=== PATIENT | female | born 1980 | race Caucasian/White ===

== ENCOUNTER 2019-12-11 22:00 | Emergency (ER) | payer BC ==
[~2019-12-11] VITALS: Ht 170.2 cm; Wt 70.3 kg
--- OUTSIDE RECORDS SUMMARY | 2019-12-11 22:03 | XMS REPORT ---
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 Allergies, Adverse Reactions, Alerts This patient has no known allergies or adverse reactions. Medications This patient has no known medications. Results Test Description Test Time Test Comments Text Results Atomic Results Result Comments Stress Test - Treadmill ONLY 2019-03-07 12:42:00 [place] [id number] Patient Name : LISA ROBIN MR #: [id number] : 1980 Age/Sex: 38/F Adm Physician : RACHAEL MORRISON MD Admit Date : 02/01/19 Location : [facility] Room/Bed : [place] [address] REPORT: Myoview Stress Test DATE OF STUDY: 02/02/2019 14:53:00 Stress Test - Treadmill ONLY PROCEDURE: Nuclear gated myocardial perfusion scan report. Nuclear gated myocardial perfusion scan is performed on 02/03/2019, and is performed as per protocol at [facility] and Lexiscan injected 0.4 mg intravenously stress agent and the patient received Myoview 11 mCi and 33 mCi for resting and stress protocol respectively. I supervised the stress test and interpreted the stress test. IMPRESSION: Normal gated myocardial perfusion scan. Ejection fraction of 60%. No evidence of any ischemia or scar noted. MD LEON Mckenna/AUGUSTO /[id number] Signature Date Dictated By: JC JOSHI MD Transcribed By: MODL on 03/07/19 <Electronically signed by JC JOSHI MD><<Signature on File>>03/12/19 1800 COPY TO: MRI BRAIN WO 2019-02-02 11:47:00 [place] [address] Patient Name: LISA ROBIN MR #: [id number] : 1980 Age/Sex: 38/F Req #: [id number] Adm Physician: RACHAEL MORRISON MD Ordered by: JANINA FLORES MD Report #: [id number] Location: [facility] Room/Bed: [place] [address] Procedure: [id number] MRI/MRI BRAIN WO Exam Date: Exam Time: REPORT STATUS: Signed Exam: Brain MRI without IV contrast History: Left-sided facial droop Com parison studies: Head CT 02/01/2019. Technique: Sagittal and axial T2 FS, axial DWI, axial T2*GRE, axial T1 FLAIR and axial coronal T2 FLAIR. Intravenous contrast: None Findings: Several pulse sequences are limited by artifacts related to patient motion. In spite of this limitation: Scalp: Normal in signal. No masses. Bone marrow: Normal in signal intensity. Brain sulci: Appropriate for age. Ventricles: Normal in size. No hydrocephalus. Extra axial spaces: No mass, no fluid collection. Parenchyma: No mass, hemorrhage or acute ischemia. A 3 mm T2 FLAIR hy perintense focus in the left precentral subcortical white matter is nonspecific but may minimal chronic microvascular ischemic changes, be [id number] in the appropriate clinical setting or reflect other nonspecific focal gliosis. Suprasellar region: No abnormalities. Craniocervical junction: Patent foramen magnum. No Chiari malformation. Vessels: Normal flow-voids in the arteries and sinuses. IMPRESSION: 1. No acute ischemia or other acute intracranial abnormalities. 2. Single nonspecific 3 mm focal left precentral subcortical signal abnormality as descr ibed. Signed by: Dr. Black Browning M.D. on 02/02/2019 11:55 AM Dictated By: BLACK BROWNING MD 115 Transcribed By: MAISHA on 02/02/19 1155 COPY TO: JANINA FLORES MD CTA CHEST 2019-02-01 19:32:00 [place] [address] Patient Name: LISA ROBIN MR #: [id number] : 1980 Age/Sex: 38/F Req #: [id number] Adm Physician: RACHAEL MORRISON MD Ordered by: KELVIN BARROSO NURSING RESIDENT Report #: [id number] Location: [facility] Room/Bed: [place] [address] Procedure: [id number] CT/CTA CHEST Exam Date: Exam Time: REPORT STATUS: Signed EXAM: CTA of the Thoracic Aorta WITH Contrast INDICATION: Chest pain. Num bness. Facial droop. cp COMPARISON: None. TECHNIQUE: Multi-detector CT technology was employed. CTA nongated axial imaging of the chest was performed after the administration of IV contrast. IV CONTRAST: 100 mL Isovue-370 ORAL CONTRAST: None COMPLICATIONS: None RADIATION DOSE: Total DLP: 850.04 mGy*cm Estimated effective dose: (DLP x 0.015 x size factor) mSv Dose modulation, iterative reconstruction, and/or weight based adjustment of the mA/kV was utilized to reduce the radiation dose to as low as reasonably achievable. For optimization of anatomic evaluation, multiplanar reconstruction, maximum intensity projections, and advanced 3-D off-line postprocessing were performed on a dedicated stand-alone workstation under the direct supervision of the interpreting physician. FINDINGS: Potential study limitations: None. LINES/ TUBES: None. VASCULAR WITH ADVANCED 3-D OFF-LINE POSTPROCESSING: Aortic valve morphology is trileaflet and contains no calcifications. The thoracic aorta is normal in course, caliber, and contour. There is no acute aortic pathology, such as dissection, intramural hematoma, or contained rupture. Aortic plaques: None. The arch vessel branching pattern with left vertebral artery arising from the aortic arch. All of the arch branch vessels appear widely patent in their proximal portions. Soccer Referee dimensions of the thoracic aorta are as follows: 2.4 cm at the aortic annulus 3.2 cm at the sinuses of Valsalva (the sinotubular junction is preserved) 3 cm at the mid ascending aorta 2.9 cm at the distal ascending aorta 2.5 cm at the mid transverse arch 2.6 cm at the proximal descending thoracic aorta 2.4 cm at the diaphragmatic hiatus. LUNGS AND AIRWAYS: Lungs are clear. Airways are patent. PLEURA: The pleural spaces are clear.. HEART AND MEDIASTINUM: Heterogeneous thyroid with nodules. No mediastinal, hilar or axillary lymphadenopathy. The main pulmonary artery is normal in size. The cardiac chambers demonstrate normal atrioventricular and ventriculoarterial concordance, and systemic and pulmonary venous return. The cardiac chambers are normal in size. The coronary arteries have normal origins and courses. There are no distinct coronary calcifications identifi ed, though this study was not optimized for coronary artery evaluation. There is no pericardial effusion. LIMITED ABDOMEN: The limited images of the upper abdomen reveal no abnormalities of the visualized organs. Accessory left hepatic artery arising from the left gastric artery. Accessory left renal artery. BONES: No acute abnormalities. IMPRESSION: Normal thoracic aorta. There is no acute aortic pathology. No acute thoracic abnormalities. Thyroid nodules which may be further evaluated with nonemergent thyroid ultrasound. Signed by: DR. Nam Wick MD on 02/01/2019 7:41 PM Dictated By: NAM WICK MD 40 Transcribed By: MAISHA on 02/01/191940 COPY TO: KELVIN BARROSO NP CT BRAIN WO 2019-02-01 19:03:00 [place] [address] Patient Name: LISA ROBIN MR #: [id number] : 1980 Age/Sex: 38/F Req #: [id number] Adm Physician: Ordered by: KELVIN BARROSO NP Report #: [id number] Location: ER Room/Bed: Procedure: [id number] CT/CT BRAIN WO Exam Date: 02/01/19 Exam Time: 1730 REPORT STATUS: Signed Exam: Head CT without contrast History: Numbness, left facial droop Comparison studies: None Technique: Axial images were obtained from the skull base to the vertex. Coronal and sagittal images reconstructed from the axial data. Dose modulation, iterative reconstruction, and/or weight based adjustment of the mA/kV was utilized to reduce the radiation dose to as low as reasonably achievable. Radiation dose: Total DLP: 921 mGy*cm. Estimated effective dose: DLP x 0.015 Intravenous contrast: None Findings: Scalp: No abnormalities. Bones: No fractures, blastic or lytic lesions. Brain sulci: Appropriate for age. Ventricles: Normal in size and configuration. No hydrocephalus. Extra-axial spaces: No masses, no fluid collection. Parenchyma: No abnormal densities. No masses, hemorrhage, acute or chronic vascular insults. Sellar/suprasellar region: No abnormalities. Craniocervical junction: Patent foramen magnum. No Chiari one malformation. IMPRESSION: No acute intracranial abnormalities. Signed by: Dr. Black Browning M.D. on 02/01/2019 7:06 PM Dictated By: BLACK BROWNING MD 05 Transcribed By: MAISHA on 02/01/191905 COPY TO: KELVIN BARROSO NP CHEST SINGLE (PORTABLE) 2019-02-01 16:21:00 [place] [address] Patient Name: LISA ROBIN MR #: [id number] : 1980 Age/Sex: 38/F Req #: [id number] Adm Physician: Ordered by: KELVIN BARROSO NURSING RESIDENT Report #: [id number] Location: ER Room/Bed: Procedure: [id number] DX/CHEST SINGLE (PORTABLE) Exam Date: 02/01/19 Exam Time: 1552 REPORT STATUS: Signed EXAMINATION: CHEST SINGLE (PORTABLE) INDICA TION: ERMD ORDER [id number] 1552 Y COMPARISON: None FINDINGS: AP view TUBES and LINES: None. LUNGS: Lungs are well inflated. There is no evidence of pneumonia or pulmonary edema. PLEURA: No pleural effusion or pneumothorax. HEART AND MEDIASTINUM: The cardiomediastinal silhouette is unremarkable. BONES AND SOFT TISSUES: No acute osseous lesion. Soft tissues are unremarkable. UPPER ABDOMEN: No free air under the diaphragm. IMPRESSION: No acute thoracic abnormality. Signed by: Dr. Tomas Rayo MD on 02/01/2019 4:21 PM Dictated By: TOMAS RAYO MD 20 Transcribed By: MAISHA on 02/01/191620 COPY TO: KELVIN BARROSO NURSING RESIDENT
[2019-12-11] MEDS ORDERED: ALBUTEROL/IPRATROPIUM 3 ML NEB NEB ONE (22:15)
[2019-12-11] MEDS ORDERED: METHYLPREDNISOLONE SOD SUCC 125 MG/2ML VIAL IV ONE (22:15)
[2019-12-11] MEDS ORDERED: SODIUM CHLORIDE 0.9% 1000ML 1,000 ML IV ONE (22:15)
[2019-12-11 22:49] LABS: BASOPHILS % 0.3 % (0.0-1.0); EOSINOPHILS # (AUTO) 0.1 (0.0-0.4); EOSINOPHILS % 1.1 % (0.0-6.0); HEMATOCRIT 34.7 % (34.2-44.1); HEMOGLOBIN 11.9 g/dL (12.0-16.0); LYMPHOCYTES # (AUTO) 4.5 (1.0-3.2); LYMPHOCYTES % 34.6 % (18.0-39.1); MEAN CORPUSCULAR HEMOGLOBIN 31.3 pg (28-32); MEAN CORPUSCULAR HGB CONC 34.3 g/dL (31-35); MEAN CORPUSCULAR VOLUME 91.3 fL (81-99); MONOCYTES # (AUTO) 1.1 (0.2-0.8); MONOCYTES % 8.2 % (4.4-11.3); NEUTROPHILS # (AUTO) 7.3 (2.1-6.9); NEUTROPHILS % 55.3 % (38.7-80.0); PLATELET COUNT 398 x10e3/uL (140-360); RED CELL DISTRIBUTION WIDTH 12.1 % (11.7-14.4)
--- NOTE | 2019-12-11 23:05 | Diagnostic Imaging Report ---
EXAMINATION: CHEST 2 VIEWS INDICATION: Cough. COMPARISON: None FINDINGS: TUBES and LINES: None. LUNGS: Lungs are well inflated. Lungs are clear. There is no evidence of pneumonia or pulmonary edema. PLEURA: No pleural effusion or pneumothorax. HEART AND MEDIASTINUM: The cardiomediastinal silhouette is unremarkable. BONES AND SOFT TISSUES: No acute osseous lesion. Soft tissues are unremarkable. UPPER ABDOMEN: No free air under the diaphragm. IMPRESSION: No acute thoracic abnormality. Signed by: Dr. Magui De Guzman M.D. on 12/11/2019 11:02 PM
[2019-12-11 23:09] LABS: ANION GAP 13.4 mmol/L (8-16); BLOOD UREA NITROGEN 9 mg/dL (7-26); BUN/CREATININE RATIO 11 (6-25); CARBON DIOXIDE 19 mmol/L (22-29); CHLORIDE 107 mmol/L (98-107); CREATININE, SERUM 0.83 mg/dL (0.57-1.11); EST GLOMERULAR FILTRATION RATE > 60 ML/MIN (60-); GLUCOSE 106 mg/dL (74-118); POTASSIUM 3.4 mmol/L (3.5-5.1); SODIUM 136 mmol/L (136-145)
[2019-12-11 23:18] LABS: INFLUENZAE A&B ANTIGEN (RAPID) NEGATIVE (NEGATIVE); STREPTOCOCCUS GRP A ANTIGEN NEGATIVE (NEGATIVE)
== END 2019-12-12 00:15 | disposition home or self-care (01) ==
LOC: ER 22:00
DX: J20.9 Acute bronchitis, unspecified (principal); F17.200 Nicotine dependence, unspecified, uncomplicated; Z88.6 Allergy status to analgesic agent; Z88.0 Allergy status to penicillin
CPT/HCPCS: 36415; 71046; 80048; 83518; 85025; 87070; 87400; 99284; J2930; J7030

== ENCOUNTER 2022-09-18 14:24 | Emergency (ER) | payer SELFPAY ==
[~2022-09-18] VITALS: Ht 172.7 cm; Wt 76.2 kg
[2022-09-18 14:39] LABS: BASOPHILS # (AUTO) 0.1 (0.0-0.1); BASOPHILS % 0.5 % (0.0-1.0); EOSINOPHILS # (AUTO) 0.2 (0.0-0.4); EOSINOPHILS % 1.1 % (0.0-6.0); HEMATOCRIT 43.5 % (34.2-44.1); HEMOGLOBIN 13.7 g/dL (12.0-16.0); LYMPHOCYTES # (AUTO) 4.2 (1.0-3.2); LYMPHOCYTES % 27.7 % (18.0-39.1); MEAN CORPUSCULAR HEMOGLOBIN 30.8 pg (28-32); MEAN CORPUSCULAR HGB CONC 31.5 g/dL (31-35); MEAN CORPUSCULAR VOLUME 97.8 fL (81-99); MONOCYTES # (AUTO) 0.8 (0.2-0.8); MONOCYTES % 5.5 % (4.4-11.3); NEUTROPHILS # (AUTO) 9.9 (2.1-6.9); NEUTROPHILS % 64.7 % (38.7-80.0); PLATELET COUNT 486 x10e3/uL (140-360); RED BLOOD COUNT 4.45 x10e6/uL (3.6-5.1)
[2022-09-18 14:58] LABS: ALANINE AMINOTRANSFERASE 19 IU/L (0-55); ALBUMIN 4.3 g/dL (3.5-5.0); ALBUMIN/GLOBULIN RATIO 1.2 (0.8-2.0); ALKALINE PHOSPHATASE 97 IU/L (40-150); ANION GAP 17.9 mmol/L (8-16); BLOOD UREA NITROGEN 12 mg/dL (7-26); BUN/CREATININE RATIO 15 (6-25); CARBON DIOXIDE 22 mmol/L (22-29); CHLORIDE 103 mmol/L (98-107); CREATINE KINASE 33 IU/L (29-168); CREATININE, SERUM 0.78 mg/dL (0.57-1.11); GLUCOSE 109 mg/dL (74-118); POTASSIUM 3.9 mmol/L (3.5-5.1); SODIUM 139 mmol/L (136-145)
[2022-09-18] MEDS ORDERED: FAMOTIDINE 20 MG/2 ML VIAL IV STA (15:10)
[2022-09-18 15:16] LABS: AMPHETAMINES SCREEN,URINE NEGATIVE (NEGATIVE); BENZODIAZEPINES SCREEN,URINE NEGATIVE (NEGATIVE); PHENCYCLIDINE SCREEN,URINE NEGATIVE (NEGATIVE)
[2022-09-18 15:56] LABS: CREATINE KINASE 34 IU/L (29-168)
[2022-09-18] MEDS ORDERED: IOPAMIDOL 370 MG/ML 100 ML INFUS..BTL INJ ONE (15:57)
[2022-09-18 17:13] VITALS: BP 129/84
== END 2022-09-18 16:55 | disposition home or self-care (01) ==
LOC: ER 14:27
DX: R06.02 Shortness of breath (principal); R07.89 Other chest pain; F17.210 Nicotine dependence, cigarettes, uncomplicated
CPT/HCPCS: 36415; 71045; 71260; 80053; 80307; 81025; 82550; 82553; 84484; 85025; 85379; 93005; 99284; Q9967